=== PATIENT | male | born 1985 ===

== ENCOUNTER 2019-04-27 16:16 | Outpatient (CLI) | payer SELFPAY | END 2019-04-27 16:17 | disposition EMS.NT | LOC: EMS 16:16 | PROVIDERS: ATTEND Surgery | DX: M54.9 Dorsalgia, unspecified (principal); V59.50XA Passenger in pick-up truck or van injured in collision with unspecified motor vehicles in traffic accident, initial encounter; Y92.413 State road as the place of occurrence of the external cause ==